=== PATIENT | female | born 1990 | race African-American/Black ===

== ENCOUNTER 2017-12-19 06:08 | Day surgery (SDC) | payer OTHER ==
[2017-12-15 14:58] VITALS: BMI 28.3
--- NOTE | 2017-12-19 07:32 | HP ---
History & Physical Update - History History: No Change - Physical Physical: No Change - Assessment Assessment: No Change - Plan Plan: No Change (Consent signed and witnessed Update of H&P from 12/10/17)
[2017-12-19] MEDS ORDERED: IBUPROFEN 800 MG/8 ML IJ IVPB PRN (07:34)
[2017-12-19] MEDS ORDERED: oxyCODONE HCL 5 MG TABLET PO PRN ×2 (07:34→09:20)
[2017-12-19] MEDS ORDERED: IBUPROFEN 600 MG TABLET (FP) PO PRN (07:34)
[2017-12-19] MEDS ORDERED: ONDANSETRON 4 MG/2 ML VIAL IVPUSH PRN ×2 (07:34→09:20)
--- NOTE | 2017-12-19 07:34 | OP ---
Operative Note - Note: Operative Date: 12/19/17 Pre-Operative Diagnosis: 27yo P0 @ 16 weeks, fetus with Trisomy 13, elective termination of anomalous Operation: Sonographicaly guided Dialation and evacuation Findings: 1.16 week uterus 2. Dialated cervix, premedicated with 400mcg of Cytotec Post-Operative Diagnosis: Same as Pre-op Surgeon: Ora Villarreal Candle Molder: Gabino Agrawal Anesthesiologist/CHECKING CLERK: Yuli Gómez MD Anesthesia: General Specimens Removed: Products of conseption Estimated Blood Loss (mls): 300 Drains, Volume Out (mls): 20 Fluid Volume Replaced (mls): 1,000 Operative Report Dictated: Yes
[2017-12-19] MEDS ORDERED: ELECTROLYTE-148 SOLN 1,000 ML IV SCH (07:45)
[2017-12-19] MEDS ORDERED: MIDAZOLAM HCL 2 MG/2 ML SINGLE DOSE VIAL ONE ×2 (07:54)
[2017-12-19] MEDS ORDERED: ROCURONIUM BROMIDE 50 MG/5 ML VIAL ONE (08:04)
[2017-12-19] MEDS ORDERED: SUCCINYLCHOLINE CHLORIDE 200 MG/10 ML VIAL ONE (08:04)
[2017-12-19] MEDS ORDERED: ceFAZolin SODIUM 1 GM VIAL IVPB ONE (08:08)
[2017-12-19] MEDS ORDERED: KETOROLAC TROMETHAMINE 30 MG/1 ML VIAL ONE (08:15)
[2017-12-19] MEDS ORDERED: ceFAZolin SODIUM 1 GM VIAL ONE (08:15)
[2017-12-19] MEDS ORDERED: LIDOCAINE HCL/PF 2% SDV 5ML VIAL ONE (08:15)
[2017-12-19] MEDS ORDERED: OXYTOCIN 10 UNITS/ML VIAL ONE (08:44)
[2017-12-19] MEDS ORDERED: NEOSTIGMINE METHYLSULFATE 0.5 MG/ML - 10 ML MDV ONE (08:49)
[2017-12-19] MEDS ORDERED: GLYCOPYRROLATE 0.2 MG/1 ML VIAL ONE (08:49)
[2017-12-19] MEDS ORDERED: PROMETHAZINE HCL 25 MG/1 ML VIAL IVPUSH PRN (09:20)
[2017-12-19] MEDS ORDERED: LACTATED RINGERS SOLUTION 1,000 ML IV SCH (09:30)
[2017-12-19 10:54] VITALS: TEMP 98
[2017-12-19 13:54] VITALS: BP 108/63; PULSE 88
--- NOTE | 2017-12-20 06:43 | OP ---
DATE OF OPERATION: 12/19/2017 PREOPERATIVE DIAGNOSIS: A 27-year-old para 0 at 16 weeks with anomalous with trisomy 13, elective termination of anomalous . OPERATION: Sonographically guided dilation and evacuation. FINDINGS: A 16 week uterus. Dilated cervix, premedicated with 400 mcg of Cytotec. POSTOPERATIVE DIAGNOSIS: A 27-year-old para 0 at 16 weeks with anomalous with trisomy 13, elective termination of anomalous . SURGEON: Keke Villarreal MD MEDICAL SALES: Gabino Agrawal MD ANESTHESIOLOGIST: Yuli Gómez MD ANESTHESIA: General. SPECIMENS REMOVED: Products of conception. DESCRIPTION OF THE OPERATIVE PROCEDURE: After assuring informed consent, patient was brought to the operating room where anesthesia was achieved. Patient was prepped and draped in sterile fashion. Wilkinson retractors were placed into the vagina. Cervix was found to be dilated with no need to use Tejada dilators. It accommodated easily the largest dilator necessary to introduce 16-gauge plastic curet. Under complete sonographic guidance, all uterine contents were evacuated by using suction and forceps. Subsequently the uterus was found to be empty by using size 6 curet. The Pitocin was started IV to augment the uterine contraction. The suction curet was used once more to confirm that uterus was empty. Sonographically it was established that all uterine contents were emptied and thin endometrial stripe was visualized. All instruments and sponges were removed from the cervix and the vagina. Excellent hemostasis was noted. The instrument and sponge count was correct x2. Patient had lost 300 mL of blood. Fluid volume replaced was 1000 mL of Plasma-Lyte and 20 mL of urine was drained. Patient was extubated and brought to the recovery room in stable condition. KEKE VILLARREAL M.D. [id number]
--- NOTE | 2017-12-21 14:44 | PATH ---
Surgical Pathology Report Patient Name: ZHOU LEVINE [facility]. Rec. #: [id number] /Age/Gender: 1990 (Age: 27) / F Account: [id number] Location: [facility] SURGICAL Taken: 12/19/2017 Received: 12/19/2017 Reported: 12/21/2017 Physicians: Ora Villarreal M.D. Specimen(s) Received PRODUCTS OF CONCEPTION Clinical History Maternal care for suspected chromosomal abnormality Final Diagnosis UTERINE CONTENTS, EVACUATION: CHORIONIC VILLI AND SOMATIC TISSUE CONSISTENT WITH PRODUCTS OF CONCEPTION. Electronically Signed Benny Guillen M.D. Gross Description Received in formalin labeled "products of conception," is a 16.5 x 15.0 x 2.0 cm aggregate of red-brown soft tissue fragments. Villous tissue and somatic tissue is identified. Program Production Specialist sections are submitted in 2 cassettes as follows: 1-villous tissue; 2- somatic tissue. /12/19/2017 saudi/12/19/2017
== END 2017-12-19 13:30 | disposition home or self-care (01) ==
LOC: JASU-SURG 06:08
PROVIDERS: ATTEND Obstetrics & Gynecology
PROC: 10A07ZZ Abortion of Products of Conception, Via Natural or Artificial Opening (ICD-10-PCS; principal; 2017-12-19 07:30)
DX: Z33.2 Encounter for elective termination of pregnancy (principal); O35.1XX0 Maternal care for (suspected) chromosomal abnormality in fetus, not applicable or unspecified; Z3A.16 16 weeks gestation of pregnancy
CPT/HCPCS: 76998-TC; 86850; 86900; 86901; 88305-TC; 94760